=== PATIENT | male | born 1945 | race Caucasian/White ===

== ENCOUNTER 2017-02-10 21:16 | Emergency (ER) | payer OTHER ==
[2017-02-10 21:58] VITALS: BP 159/88
== END 2017-02-10 21:58 | disposition home or self-care (01) ==
LOC: ED 21:16
DX: D29.1 Benign neoplasm of prostate (principal); Z98.890 Other specified postprocedural states

== ENCOUNTER 2017-11-12 23:06 | Emergency (ER) | payer OTHER ==
[2017-11-13 00:08] VITALS: BP 146/86
== END 2017-11-13 00:20 | disposition left against medical advice (07) ==
LOC: ED 23:06
DX: Z53.21 Procedure and treatment not carried out due to patient leaving prior to being seen by health care provider (principal)